=== PATIENT | male | born 1995 | race African-American/Black ===

== ENCOUNTER 2018-08-22 15:53 | Emergency (ER) | payer OTHER ==
[~2018-08-22] VITALS: Ht 177.8 cm; Wt 127.0 kg
[2018-08-22 16:10] VITALS: BP 144/83
[2018-08-22] MEDS ORDERED: KETOROLAC 30 MG/ML VIAL. IM ONE (16:15)
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
--- NOTE | 2018-08-23 09:49 | RAD ---
Three-view right knee study Clinical indications: Right knee pain. FINDINGS: No acute fracture or dislocation or lytic process is seen. Mild degenerative spurring of the medial tibiofemoral joint compartment and to a lesser extent the lateral tibiofemoral joint compartment is seen. There is mild joint space narrowing of both of these joint compartments. No significant right knee joint effusion is seen. IMPRESSION: No acute fracture. 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 Electronically signed by: Shiva Keller MD (08/22/2018 4:56 PM) [id number]
== END 2018-08-22 17:45 | disposition home or self-care (01) ==
LOC: ER 15:53
DX: M25.561 Pain in right knee (principal); R09.81 Nasal congestion
CPT/HCPCS: 73562; 96372; 99284; J1885

== ENCOUNTER → 2018-09-21 | Outpatient (CLI) | payer OTHER ==
[2018-08-22 16:10] VITALS: BP 144/83
--- NOTE | 2018-09-21 12:44 | KCIC ---
MR of the right knee HISTORY: Right knee pain. Positive Ellis's. Pain anterior. TECHNIQUE: Routine multiplanar sequences are obtained. FINDINGS: No evidence of medial meniscal tear. No evidence of lateral meniscal tear. Anterior and posterior cruciate ligaments are intact. Medial collateral ligament is intact. Iliotibial band unremarkable. Fibular collateral ligament, biceps femoris tendon and popliteus tendon are intact. Extensor mechanism is intact. Trace joint fluid. No evidence of acute articular cartilage defect. No bone destruction or acute fracture. IMPRESSION: No evidence of acute abnormality or internal derangement. Electronically signed by: Kofi Jimenez MD (09/21/2018 12:40 PM) [facility]
== END | disposition home or self-care (01) ==
LOC: KCIC MRI 11:34
PROVIDERS: ATTEND Orthopaedic Surgery
DX: M25.561 Pain in right knee (principal)
CPT/HCPCS: 73721

== ENCOUNTER 2018-10-01 09:53 | Emergency (ER) | payer OTHER ==
[~2018-10-01] VITALS: Ht 167.6 cm; Wt 108.9 kg
[2018-10-01 10:03] VITALS: BP 159/81
[2018-10-01] MEDS ORDERED: PANTOPRAZOLE 40 MG TABLET.DR. PO ONE (10:15)
[2018-10-01] MEDS ORDERED: LIDO:MAALOX 1:1 20 ML SINGLE DOSE. SWSW ONE (10:15)
[2018-10-01] MEDS ORDERED: PANT40GR PO (10:15)
--- NOTE | 2018-10-01 10:15 | PHYS DOC ---
Past Medical History Past Medical History: No Pertinent History Past Surgical History: No Surgical History Alcohol Use: Occasionally Drug Use: None Adult General Chief Complaint Chief Complaint: SORE THROAT HPI HPI Patient is a 22 year old male who presents with sore throat has been ongoing for months. Patient is not tried any interventions prior to arrival. Is able to talk in full sentences, and is able to keep food down and swallow normally. States that he gets acid like sensation in the back of his throat. Rates his pain as 5 out of 10 in severity. States is worse in the morning. Review of Systems Review of Systems Constitutional: Denies fever or chills [] Eyes: Denies change in visual acuity, redness, or eye pain [] HENT: Denies nasal congestion but reports sore throat [] Respiratory: Denies cough or shortness of breath [] Cardiovascular: No additional information not addressed in HPI [] GI: Denies abdominal pain, nausea, vomiting, bloody stools or diarrhea [] : Denies dysuria or hematuria [] Musculoskeletal: Denies back pain or joint pain [] Integument: Denies rash or skin lesions [] Neurologic: Denies headache, focal weakness or sensory changes [] Endocrine: Denies polyuria or polydipsia [] Complete systems were reviewed and found to be within normal limits, except as documented in this note. Current Medications Current Medications Current Medications Medications (Trade) Dose Ordered Sig/Erick Start Time Stop Time Status Last Admin Dose Admin Multi-Ingredient Mouthwash/Gargle (Gi Cocktail) 20 ml 1X ONCE 10/01/18 10:15 10/01/18 10:16 DC 10/01/18 10:20 20 ML Pantoprazole Sodium (Protonix) 40 mg 1X ONCE 10/01/18 10:15 10/01/18 10:16 DC 10/01/18 10:19 40 MG Allergies Allergies Allergies Coded Allergies Type Severity Reaction Last Updated Verified No Known Drug Allergies 08/22/18 No Physical Exam Physical Exam Constitutional: Well developed, well nourished, no acute distress, non-toxic appearance. [] HENT: Normocephalic, atraumatic, bilateral external ears normal, oropharynx magnus st, no oral exudates, throat is erythematous, nose normal. [] Eyes: PERRLA, EOMI, conjunctiva normal, no discharge. [] Neck: Normal range of motion, no tenderness, supple, no stridor. [] Cardiovascular:Heart rate regular rhythm, no murmur [] Lungs & Thorax: Bilateral breath sounds clear to auscultation [] Abdomen: Bowel sounds normal, soft, no tenderness, no masses, no pulsatile masses. [] Skin: Warm, dry, no erythema, no rash. [] Back: No tenderness, no CVA tenderness. [] Extremities: No tenderness, no cyanosis, no clubbing, ROM intact, no edema. [] Neurologic: Alert and oriented X 3, normal motor function, normal sensory function, no focal deficits noted. [] Psychologic: Affect normal, judgement normal, mood normal. [] Current Patient Data Vital Signs Vital Signs Date Time Temp Pulse Resp B/P (MAP) Pulse Ox O2 Delivery O2 Flow Rate FiO2 10/01/18 10:03 99.6 97 18 159/81 (107) 97 Room Air 99.6 EKG EKG [] Radiology/Procedures Radiology/Procedures [] Course & Med Decision Making Course & Med Decision Making Pertinent Labs and Imaging studies reviewed. (See chart for details) Appears to have GERD. Will give a GI Cocktail and Protonix. Will write a pr escription for Protonix and have him follow up with a primary care doctor. Will d/c home. GI cocktail improved symptoms. Dragon Disclaimer Louis Disclaimer This electronic medical record was generated, in whole or in part, using a voice recognition dictation system. Departure Departure Impression: Primary Impression: GERD (gastroesophageal reflux disease) Disposition: 01 HOME, SELF-CARE Condition: STABLE Referrals: NO PCP (PCP) Patient Instructions: Diet for Gastroesophageal Reflux Disease, Adult, Gastroesophageal Reflux Disease, Adult Additional Instructions: Thank you for visiting [facility]. We appreciate you trusting us with your care. If any additional problems come up don't hesitate to return to visit us. Please follow up with your primary care provider so they can plan ad ditional care if needed and know about the problem that you had. If symptoms worsen come back to the Emergency Department. Any concerning symptoms that start such as chest pain, shortness of Air, weakness or numbness on one side of the body, running high fevers or any other concerning symptoms return to the ER. Scripts Pantoprazole Sodium (PROTONIX) 20 Mg Tablet.dr 40 MG PO DAILY for 30 Days, #60 TAB Prov: PAULETTE PERRY APRN 10/01/18 Problem Qualifiers Primary Impression: GERD (gastroesophageal reflux disease) Esophagitis presence: esophagitis presence not specified Qualified Codes: K21.9 - Gastro-esophageal reflux disease without esophagitis PAULETTE PERRY APRN Oct 01, 2018 10:15
[2018-10-01] MEDS ORDERED: PANT20TA2 PO (10:18)
== END 2018-10-01 10:47 | disposition home or self-care (01) ==
LOC: ER 09:53
DX: K21.9 Gastro-esophageal reflux disease without esophagitis (principal)
CPT/HCPCS: 99283

== ENCOUNTER 2018-11-15 11:03 | Emergency (ER) | payer SELFPAY ==
[~2018-11-15] VITALS: Ht 177.8 cm; Wt 108.9 kg
[~2018-11-15 11:03] MED LIST: PANT20TA2 PO; PANT40GR PO
--- NOTE | 2018-11-15 11:23 | PHYS DOC ---
Past Medical History Past Medical History: No Pertinent History Past Surgical History: No Surgical History Alcohol Use: Occasionally Drug Use: None Adult General Chief Complaint Chief Complaint: ABDOMINAL PAIN HPI HPI Patient is a 23 year old male presents to the ED complaining of abdominal pain since last night. States the pain is to his upper right quadrant. Describes the pain as sharp. Rates the pain as 6 out of 10. Associated symptoms include nausea and vomiting. States he vomited over 5 times. Last meal was dairy higgins. Denies chest pain, shortness of breath, dizziness, weakness, diarrhea, blood in stool, headache, dysuria or fever. Review of Systems Review of Systems Constitutional: Denies fever or chills [] Eyes: Denies change in visual acuity, redness, or eye pain [] HENT: Denies nasal congestion or sore throat [] Respiratory: Denies cough or shortness of breath [] Cardiovascular: No additional information not addressed in HPI [] GI: Complains of abdominal pain and nausea/vomiting. Denies bloody stools or diarrhea [] : Denies dysuria or hematuria [] Musculoskeletal: Denies back pain or joint pain [] Integument: Denies rash or skin lesions [] Neurologic: Denies headache, focal weakness or sensory changes [] All other systems were reviewed and found to be within normal limits, except as documented in this note. Allergies Allergies Allergies Coded Allergies Type Severity Reaction Last Updated Verified No Known Drug Allergies 08/22/18 No Physical Exam Physical Exam Constitutional: Well developed, well nourished, no acute distress, non-toxic appearance. [] HENT: Normocephalic, atraumatic Eyes: PERRLA, EOMI, conjunctiva normal, no discharge. [] Neck: Normal range of motion, no tenderness, supple, no stridor. [] Cardiovascular:Heart rate regular rhythm, no murmur [] Lungs & Thorax: Bilateral breath sounds clear to auscultation [] Abdomen: Bowel sounds normal, soft, Mild RUQ tenderness, no masses, no pulsatile masses. [] Skin: Warm, dry, no erythema, no rash. [] Back: No tenderness, no CVA tenderness. [] Extremities: No tenderness, no cyanosis, no clubbing, ROM intact, no edema. [] Neurologic: Alert and oriented X 3, normal motor function, normal sensory function, no focal deficits noted. [] Psychologic: Affect normal, judgement normal, mood normal. [] Current Patient Data Vital Signs Vital Signs Date Time Temp Pulse Resp B/P (MAP) Pulse Ox O2 Delivery O2 Flow Rate FiO2 11/15/18 11:19 98.7 85 18 134/82 (99) 97 Room Air 98.7 Lab Values Laboratory Tests Test 11/15/18 11:10 11/15/18 11:45 11/15/18 12:15 Urine Collection Type Unknown Urine Color Yellow Urine Clarity Clear Urine pH 6.0 Urine Specific Sterling 1.020 Urine Protein Negative mg/dL (NEG-TRACE) Urine Glucose (UA) Negative mg/dL (NEG) Urine Ketones (Stick) Negative mg/dL (NEG) Urine Blood Negative (NEG) Urine Nitrite Negative (NEG) Urine Bilirubin Negative (NEG) Urine Urobilinogen Dipstick 0.2 mg/dL (0.2 mg/dL) Urine Leukocyte Esterase Trace (NEG) Urine RBC Occ /HPF (0-2) Urine WBC 1-4 /HPF (0-4) Urine Squamous Epithelial Cells Occ /LPF Urine Bacteria 0 /HPF (0-FEW) White Blood Count 6.9 x10^3/uL (4.0-11.0) Red Blood Count 5.50 x10^6/uL (4.30-5.70) Hemoglobin 15.3 g/dL (13.0-17.5) Hematocrit 45.0 % (39.0-53.0) Mean Corpuscular Volume 82 fL (79-100) Mean Corpuscular Hemoglobin 28 pg (25-35) Mean Corpuscular Hemoglobin Concent 34 g/dL (31-37) Red Cell Distribution Width 14.9 % (11.5-14.5) H Platelet Count 297 x10^3/uL (140-400) Neutrophils (%) (Auto) 64 % (31-73) Lymphocytes (%) (Auto) 27 % (24-48) Monocytes (%) (Auto) 8 % (0-9) Eosinophils (%) (Auto) 1 % (0-3) Basophils (%) (Auto) 0 % (0-3) Neutrophils # (Auto) 4.4 x10^3/uL (1.8-7.7) Lymphocytes # (Auto) 1.9 x10^3/uL (1.0-4.8) Monocytes # (Auto) 0.5 x10^3/uL (0.0-1.1) Eosinophils # (Auto) 0.1 x10^3/uL (0.0-0.7) Basophils # (Auto) 0.0 x10^3/uL (0.0-0.2) Sodium Level 141 mmol/L (136-145) Potassium Level 3.8 mmol/L (3.5-5.1) Chloride Level 107 mmol/L (98-107) Carbon Dioxide Level 26 mmol/L (21-32) Anion Gap 8 (6-14) Blood Urea Nitrogen 11 mg/dL (8-26) Creatinine 1.2 mg/dL (0.7-1.3) Estimated GFR (Cockcroft-Gault) 89.3 BUN/Creatinine Ratio 9 (6-20) Glucose Level 105 mg/dL (70-99) H Calcium Level 9.2 mg/dL (8.5-10.1) Total Bilirubin 0.4 mg/dL (0.2-1.0) Aspartate Amino Transferase (AST) 16 U/L (15-37) Alanine Aminotransferase (ALT) 33 U/L (16-63) Alkaline Phosphatase 72 U/L (46-116) Total Protein 7.2 g/dL (6.4-8.2) Albumin 3.7 g/dL (3.4-5.0) Albumin/Globulin Ratio 1.1 (1.0-1.7) Lipase 141 U/L (73-393) Laboratory Tests 11/15/18 11:45 Laboratory Tests 11/15/18 12:15 EKG EKG [] Radiology/Procedures Radiology/Procedures PROCEDURE: CT ABDOMEN PELVIS WO CONTRAST Examination: CT of the abdomen pelvis without contrast HISTORY: History of right upper quadrant abdominal pain COMPARISON: None available TECHNIQUE: Axial CT images of the abdomen pelvis were performed without contrast. Coronal and sagittal reformats are performed. Exposure: One or more of the following individualized dose reduction techniques were utilized for this examination: 1. Automated exposure control 2. Adjustment of the mA and/or kV according to patient size 3. Use of iterative reconstruction technique FINDINGS: Minimal bibasilar lung atelectasis. No evidence of free air identified in the abdomen The evaluation of the solid organs is limited due to lack of IV contrast. The evaluation of bowel is limited due to lack of oral contrast. The visualized noncontrasted liver, spleen, adrenals grossly appears unremarkable. The gallbladder is mildly distended. The stomach is mildly distended. The visualized pancreas grossly appears unremarkable. The small bowel is nondilated. The appendix is normal. Feces and gas noted in the colon. The urinary bladder is mildly distended. No evidence of intrarenal collecting system calculi or hydronephrosis. The urinary bladder is mildly distended. No evidence of lytic bony destructive lesion. IMPRESSION: No acute intra-abdominal findings. [] PROCEDURE: ABDOMEN COMPLETE ABDOMEN COMPLETE: 11/15/2018 11:17 AM Indication: 23 years old Male. Abdominal pain and right upper quadrant of the abdomen. Comparison: None. TECHNIQUE: Sonographic evaluation of the abdomen is performed utilizing grayscale and color Doppler. FINDINGS: Liver: Homogenous normal echotexture.. There is hepatopedal flow within the portal venous system. Right hepatic lobe measures 14.9 cm. Biliary system: CBD measures 3.2 mm. There is no intrahepatic or extrahepatic biliary dilatation. Gallbladder: No stones, wall thickening or pericholecystic fluid. . Sonographic Guadalupe sign: Negative Pancreas: Visualized head and uncinate process are unremarkable. Body and tail are not visualized. Spleen: 10.7 cm. Right kidney: 9.5 x 4.8 x 4.2 cm. No hydronephrosis. Normal echotexture without focal mass or renal calculus. Left kidney: 10.3 x 4.1 x 4.8 cm. No hydronephrosis. Normal echotexture without focal mass or renal calculus. Abdominal aorta and IVC: Visualized portions unremarkable. Free fluid:None. IMPRESSION: No cholelithiasis nor intrahepatic or extrahepatic biliary ductal dilatation. Course & Med Decision Making Course & Med Decision Making Pertinent Labs and Imaging studies reviewed. (See chart for details) []Discussed lab and imaging findings with patient. Patient's pain improved in the ED. States she is feeling much better. On reexamination, abdomen is soft nontender. No peritoneal signs. Tolerating by mouth. Discussed symptomatic treatment and dietary changes. Discussed follow-up with PCP this week. Provided contact information such education. Discussed reasons to return to the ED. Patient understands and agrees with plan. Dragon Disclaimer Dragon Disclaimer This electronic medical record was generated, in whole or in part, using a voice recognition dictation system. Departure Departure Impression: Primary Impression: Abdominal pain Additional Impression: Vomiting Disposition: 01 HOME, SELF-CARE Condition: IMPROVED Referrals: NO PCP (PCP) PAULETTE ESCALANTE MD Patient Instructions: Abdominal Pain Scripts Ondansetron Hcl (ZOFRAN) 4 Mg Tablet 1 TAB PO Q6HRS, #15 TAB Prov: ALFONSO VASQUEZ 11/15/18 Problem Qualifiers ALFONSO VASQUEZ Nov 15, 2018 11:23
[2018-11-15 11:29] LABS: BILIRUBIN,URINE NEGATIVE (NEG); CLARITY,URINE CLEAR; COLOR,URINE YELLOW; NITRITE,URINE NEGATIVE (NEG); PROTEIN,URINE NEGATIVE (NEG-TRACE); UROBILINOGEN,URINE 0.2 mg/dL (0.2 mg/dL)
[2018-11-15 11:42] LABS: BACTERIA,URINE 0 /HPF (0-FEW); RBC,URINE OCC /HPF (0-2)
[2018-11-15 11:43] LABS: SQUAMOUS EPITHELIAL CELL,UR OCC /LPF
[2018-11-15 11:52] LABS: BASO % 0 % (0-3); EOS # 0.1 x10^3/uL (0.0-0.7); EOS % 1 % (0-3); HEMOGLOBIN 15.3 g/dL (13.0-17.5); LYMPH # 1.9 x10^3/uL (1.0-4.8); LYMPH % 27 % (24-48); MEAN CORPUSCULAR HEMOGLOBIN 28 pg (25-35); MEAN CORPUSCULAR HGB CONC 34 g/dL (31-37); MEAN CORPUSCULAR VOLUME 82 fL (79-100); MONO # 0.5 x10^3/uL (0.0-1.1); MONO % 8 % (0-9); NEUT # 4.4 x10^3/uL (1.8-7.7); NEUT % 64 % (31-73); PLATELET COUNT 297 x10^3/uL (140-400); RED CELL DISTRIBUTION WIDTH 14.9 % (11.5-14.5); WHITE BLOOD COUNT 6.9 x10^3/uL (4.0-11.0)
[2018-11-15 12:45] LABS: CALCIUM 9.2 mg/dL (8.5-10.1); CREATININE 1.2 mg/dL (0.7-1.3); GFR 89.3; POTASSIUM 3.8 mmol/L (3.5-5.1)
[2018-11-15 12:49] VITALS: BP 126/64
[2018-11-15 12:51] LABS: ALBUMIN 3.7 g/dL (3.4-5.0); ALBUMIN/GLOBULIN RATIO 1.1 (1.0-1.7); TOTAL BILIRUBIN 0.4 mg/dL (0.2-1.0); TOTAL PROTEIN 7.2 g/dL (6.4-8.2)
--- NOTE | 2018-11-15 12:51 | RAD ---
ABDOMEN COMPLETE: 11/15/2018 11:17 AM Indication: 23 years old Male. Abdominal pain and right upper quadrant of the abdomen. Comparison: None. TECHNIQUE: Sonographic evaluation of the abdomen is performed utilizing grayscale and color Doppler. FINDINGS: Liver: Homogenous normal echotexture.. There is hepatopedal flow within the portal venous system. Right hepatic lobe measures 14.9 cm. Biliary system: CBD measures 3.2 mm. There is no intrahepatic or extrahepatic biliary dilatation. Gallbladder: No stones, wall thickening or pericholecystic fluid. . Sonographic Guadalupe sign: Negative Pancreas: Visualized head and uncinate process are unremarkable. Body and tail are not visualized. Spleen: 10.7 cm. Right kidney: 9.5 x 4.8 x 4.2 cm. No hydronephrosis. Normal echotexture without focal mass or renal calculus. Left kidney: 10.3 x 4.1 x 4.8 cm. No hydronephrosis. Normal echotexture without focal mass or renal calculus. Abdominal aorta and IVC: Visualized portions unremarkable. Free fluid:None. IMPRESSION: No cholelithiasis nor intrahepatic or extrahepatic biliary ductal dilatation. Electronically signed by: Celena Lott MD (11/15/2018 12:48 PM) [id number]
--- NOTE | 2018-11-15 13:09 | RAD ---
Examination: CT of the abdomen pelvis without contrast HISTORY: History of right upper quadrant abdominal pain COMPARISON: None available TECHNIQUE: Axial CT images of the abdomen pelvis were performed without contrast. Coronal and sagittal reformats are performed. Exposure: One or more of the following individualized dose reduction techniques were utilized for this examination: 1. Automated exposure control 2. Adjustment of the mA and/or kV according to patient size 3. Use of iterative reconstruction technique FINDINGS: Minimal bibasilar lung atelectasis. No evidence of free air identified in the abdomen The evaluation of the solid organs is limited due to lack of IV contrast. The evaluation of bowel is limited due to lack of oral contrast. The visualized noncontrasted liver, spleen, adrenals grossly appears unremarkable. The gallbladder is mildly distended. The stomach is mildly distended. The visualized pancreas grossly appears unremarkable. The small bowel is nondilated. The appendix is normal. Feces and gas noted in the colon. The urinary bladder is mildly distended. No evidence of intrarenal collecting system calculi or hydronephrosis. The urinary bladder is mildly distended. No evidence of lytic bony destructive lesion. IMPRESSION: No acute intra-abdominal findings. Electronically signed by: Weston Hobbs MD (11/15/2018 1:06 PM) [id number]
[2018-11-15] MEDS ORDERED: ONDA4TAB7 PO (13:22)
== END 2018-11-15 13:32 | disposition home or self-care (01) ==
LOC: ER 11:03
DX: R10.11 Right upper quadrant pain (principal); R11.2 Nausea with vomiting, unspecified
CPT/HCPCS: 36415; 74176; 76700; 80053; 81001; 83690; 85025; 99285

== ENCOUNTER 2018-11-20 13:38 | Emergency (ER) | payer SELFPAY ==
[~2018-11-20] VITALS: Ht 167.6 cm; Wt 111.1 kg
[~2018-11-20 13:38] MED LIST changes: +ONDA4TAB7 PO
[2018-11-20] MEDS ORDERED: NAPROXEN 500 MG TABLET PO STA (14:05)
--- NOTE | 2018-11-20 14:19 | PHYS DOC ---
Past Medical History Past Medical History: No Pertinent History Past Surgical History: No Surgical History Alcohol Use: Occasionally Drug Use: None Adult General Chief Complaint Chief Complaint: FLANK PAIN HPI HPI Patient is a 23 year old male who presents with complaining of back pain. Patient states he was at work today and felt right upper back pain as a constant sharp pain with radiation to right side of abdomen without radiation to his right lower extremity or genital area and focal neuro deficit. She said the pain getting worse and denies shortness of breath, chest pain, nausea and vomiting, urinary symptom, history of the same pain. Patient rated his pain 10 over 10 and denies taking pain medication. Review of Systems Review of Systems Constitutional: Denies fever or chills [] Eyes: Denies change in visual acuity, redness, or eye pain [] HENT: Denies nasal congestion or sore throat [] Respiratory: Denies cough or shortness of breath [] Cardiovascular: No additional information not addressed in HPI [] GI: Denies abdominal pain, nausea, vomiting, bloody stools or diarrhea [] : Denies dysuria or hematuria [] Musculoskeletal: Denies back pain or joint pain [] Integument: Denies rash or skin lesions [] Neurologic: Denies headache, focal weakness or sensory changes [] Endocrine: Denies polyuria or polydipsia [] All other systems were reviewed and found to be within normal limits, except as documented in this note. Current Medications Current Medications Current Medications Medications (Trade) Dose Ordered Sig/Erick Start Time Stop Time Status Last Admin Dose Admin Naproxen (Naprosyn) 500 mg 1X STAT 11/20/18 14:05 11/20/18 14:10 DC 11/20/18 14:17 500 MG Allergies Allergies Allergies Coded Allergies Type Severity Reaction Last Updated Verified No Known Drug Allergies 08/22/18 No Physical Exam Physical Exam Constitutional: Well developed, well nourished, mild distress, non-toxic appearance. [] HENT: Normocephalic, atraumatic. Eyes: PERRLA, EOMI, conjunctiva normal, no discharge. [] Neck: Normal range of motion, no tenderness, supple, no stridor. [] Cardiovascular:Heart rate regular rhythm, no murmur [] Lungs & Thorax: Bilateral breath sounds clear to auscultation [] Abdomen: Bowel sounds normal, soft, no tenderness, no masses, no pulsatile masses. [] Skin: Warm, dry, no erythema, no rash. [] Back: No tenderness, no CVA tenderness. [] Extremities: No tenderness, no cyanosis, no clubbing, ROM intact, no edema. [] Neurologic: Alert and oriented X 3, no focal deficits noted. [] Psychologic: Affect normal, judgement normal, mood normal. [] Current Patient Data Vital Signs Vital Signs Date Time Temp Pulse Resp B/P (MAP) Pulse Ox O2 Delivery O2 Flow Rate FiO2 11/20/18 15:42 68 16 133/60 (84) 98 Room Air 11/20/18 13:57 98.1 98.1 Lab Values Laboratory Tests Test 11/20/18 13:57 Urine Collection Type Unknown Urine Color Yellow Urine Clarity Clear Urine pH 6.5 Urine Specific [place] 1.015 Urine Protein Negative mg/dL (NEG-TRACE) Urine Glucose (UA) Negative mg/dL (NEG) Urine Ketones (Stick) Negative mg/dL (NEG) Urine Blood Negative (NEG) Urine Nitrite Negative (NEG) Urine Bilirubin Negative (NEG) Urine Urobilinogen Dipstick 1.0 mg/dL (0.2 mg/dL) Urine Leukocyte Esterase Negative (NEG) Urine RBC 1-2 /HPF (0-2) Urine WBC Occ /HPF (0-4) Urine Bacteria 0 /HPF (0-FEW) Urine Mucus Mod /LPF EKG EKG [] Radiology/Procedures Radiology/Procedures [][facility] [address] [place] [address] IMAGING REPORT Signed PATIENT: VITOR TAN ACCOUNT: [id number] : 1995 LOCATION: ER AGE: 23 SEX: M EXAM STATUS: REG ER ORD. PHYSICIAN: MATA GIRON MD REASON: right upper flank pain started today. PROCEDURE: CT ABDOMEN PELVIS WO CONTRAST EXAM: CT Abdomen and Pelvis without IV contrast CLINICAL HISTORY: Right upper flank pain. COMPARISON: 11/15/2018 TECHNIQUE: Helical CT of the abdomen and pelvis without intravenous contrast. Axial, coronal and sagittal reformatted images were generated. PQRS compliance statement - One or more of the following individualized dose reduction techniques were utilized for this study: 1. Automated exposure control 2. Adjustment of the mA and/or kV according to patient size 3. Use of iterative reconstruction technique FINDINGS: Lack of intravenous contrast limits evaluation of solid organs, vasculature, and lymph nodes. Lower chest: Vague dependent groundglass opacities in the left greater than right lower lobes likely atelectasis. Abdomen and Pelvis: No focal liver lesion. No biliary ductal dilatation. High density material dependently in the gallbladder likely sludge. Spleen is unremarkable. Adrenal glands and pancreas are unremarkable. No renal tract calculus. No focal renal lesion. No hydronephrosis. Appendix is normal. No small or large bowel dilatation. Moderate colonic stool content. No abdominal or pelvic ascites. No abdominal or pelvic lymphadenopathy. Bones: Osseous structures are grossly normal. IMPRESSION: 1. High density material within the gallbladder likely sludge. No CT evidence for acute cholecystitis. 2. Moderate colonic stool content. No evidence for bowel obstruction. 3. Appendix is normal. Electronically signed by: Sylvester Huggins MD (11/20/2018 2:53 PM) [facility] DICTATED and SIGNED BY: SYLVESTER HUGGINS MD DATE: 11/20/18 1453 Course & Med Decision Making Course & Med Decision Making Pertinent Labs and Imaging studies reviewed. (See chart for details) I've spoken with the patient and/or caregivers. I've explained the patient's condition, diagnosis and treatment plan based on information available to me at this time. I've answered the patient's and/or caregivers questions and addressed any concerns. The patient and/or caregivers have a good understanding the patient's diagnosis, condition and treatment plan as can be expected at this point. Vital signs have been stabilized. The patient's condition is stable for discharge from the emergency department. The patient will pursue further outpatient evaluation with her primary care provider or other designated consulting physician as outlined in the discharge instructions. Patient and/or caregivers are agreeable to this plan of care and follow-up instructions have been explained in detail. The patient and/or caregivers have received these instructions in written format and expressed understanding of these discharge instructions. The patient and her caregivers are aware that if any significant change in condition or worsening of symptoms should prompt him to immediately return to this of the closest emergency department. If an emergent department is not readily available I would encourage him to call 911. Louis Disclaimer Louis Disclaimer This electronic medical record was generated, in whole or in part, using a voice recognition dictation system. Departure Departure Impression: Primary Impression: Biliary colic Disposition: 01 HOME, SELF-CARE (at 1537) Condition: IMPROVED Referrals: NO PCP (PCP) REMA COONEY MD Patient Instructions: Biliary Colic Additional Instructions: Drink plenty of liquids Follow-up with your primary care physician in 3-5 days Return to ER if not getting better Do not eat greasy food Follow-up with on-call surgeon in 2 or 3 days Scripts Ranitidine Hcl (ZANTAC) 150 Mg Tablet 1 TAB PO BID, #14 TAB Prov: MATA GIRON MD 11/20/18 Tramadol Hcl (ULTRAM) 50 Mg Tablet 50 MG PO Q6HRS PRN for PAIN, #14 TAB 0 Refills Prov: MATA GIRON MD 11/20/18 Cyclobenzaprine Hcl (CYCLOBENZAPRINE HCL) 10 Mg Tablet 1 TAB PO TID, #21 TAB Prov: MATA GIRON MD 11/20/18 MATA GIRON MD Nov 20, 2018 14:19
[2018-11-20 14:21] LABS: BILIRUBIN,URINE NEGATIVE (NEG); CLARITY,URINE CLEAR; COLOR,URINE YELLOW; NITRITE,URINE NEGATIVE (NEG); PH,URINE 6.5; PROTEIN,URINE NEGATIVE (NEG-TRACE)
[2018-11-20 14:39] LABS: BACTERIA,URINE 0 /HPF (0-FEW); WBC,URINE OCC /HPF (0-4)
--- NOTE | 2018-11-20 14:56 | RAD ---
EXAM: CT Abdomen and Pelvis without IV contrast CLINICAL HISTORY: Right upper flank pain. COMPARISON: 11/15/2018 TECHNIQUE: Helical CT of the abdomen and pelvis without intravenous contrast. Axial, coronal and sagittal reformatted images were generated. PQRS compliance statement - One or more of the following individualized dose reduction techniques were utilized for this study: 1. Automated exposure control 2. Adjustment of the mA and/or kV according to patient size 3. Use of iterative reconstruction technique FINDINGS: Lack of intravenous contrast limits evaluation of solid organs, vasculature, and lymph nodes. Lower chest: Vague dependent groundglass opacities in the left greater than right lower lobes likely atelectasis. Abdomen and Pelvis: No focal liver lesion. No biliary ductal dilatation. High density material dependently in the gallbladder likely sludge. Spleen is unremarkable. Adrenal glands and pancreas are unremarkable. No renal tract calculus. No focal renal lesion. No hydronephrosis. Appendix is normal. No small or large bowel dilatation. Moderate colonic stool content. No abdominal or pelvic ascites. No abdominal or pelvic lymphadenopathy. Bones: Osseous structures are grossly normal. IMPRESSION: 1. High density material within the gallbladder likely sludge. No CT evidence for acute cholecystitis. 2. Moderate colonic stool content. No evidence for bowel obstruction. 3. Appendix is normal. Electronically signed by: Sylvester Yates MD (11/20/2018 2:53 PM) [facility]
[2018-11-20] MEDS ORDERED: TRAM-48 PO (15:39)
[2018-11-20] MEDS ORDERED: RANI-376 PO (15:39)
[2018-11-20] MEDS ORDERED: CYCL10TA2 PO (15:39)
[2018-11-20 15:42] VITALS: BP 133/60
== END 2018-11-20 15:48 | disposition home or self-care (01) ==
LOC: ER 13:38
DX: K80.50 Calculus of bile duct without cholangitis or cholecystitis without obstruction (principal); M54.6 Pain in thoracic spine
CPT/HCPCS: 74176; 81001; 99285-25

== ENCOUNTER 2019-09-14 17:42 | Emergency (ER) | payer BC ==
[~2019-09-14] VITALS: Ht 170.2 cm; Wt 113.6 kg
[~2019-09-14 17:42] MED LIST changes: +CYCL10TA2 PO; +RANI-376 PO; +TRAM-48 PO
[2019-09-14] MEDS ORDERED: IBUPROFEN 200 MG TABLET. PO ONE (19:30)
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
[2019-09-14 20:34] VITALS: BP 123/91
== END 2019-09-14 20:35 | disposition home or self-care (01) ==
LOC: ER 17:42
DX: S60.221A Contusion of right hand, initial encounter (principal); M25.531 Pain in right wrist; R60.0 Localized edema; X58.XXXA Exposure to other specified factors, initial encounter; Y93.89 Activity, other specified; Y92.89 Other specified places as the place of occurrence of the external cause; Y99.8 Other external cause status
CPT/HCPCS: 73110; 73130; 99284

== ENCOUNTER 2019-10-25 00:48 | Emergency (ER) | payer OTHER, BC ==
[~2019-10-25] VITALS: Ht 167.6 cm; Wt 90.9 kg
--- NOTE | 2019-10-25 01:02 | PHYS DOC ---
Past Medical History Past Medical History: No Pertinent History Past Surgical History: No Surgical History Smoking Status: Never Smoker Alcohol Use: Occasionally Drug Use: None General Adult EDM: Chief Complaint: RIB PAIN HPI: HPI: Patient is a 23 year old male who arrives via EMS complaining of left pectoral pain. Pain is moderate in nature and worse with range of motion of left shoulder and radiates to the left back. 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 Pain began in the evening on October 23 about 6 PM. Patient denies any shortness of breath, cough, fever, chills, weakness in that left arm. Review of Systems: Review of Systems: Constitutional: Denies fever or chills Eyes: Denies change in visual acuity HENT: Denies sore throat Respiratory: Denies cough or shortness of breath Cardiovascular: Complains of left chest wall pain GI: Denies abdominal pain, nausea, vomiting, or diarrhea : Denies dysuria Musculoskeletal: Complains of pain in the left thoracic area Integument: Denies rash Neurologic: Denies headache or focal weakness Psychiatric: Denies depression or anxiety Heart Score: Risk Factors: Risk Factors: DM, Current or recent (<one month) smoker, HTN, HLP, family history of CAD, obesity. Risk Scores: Score 0 - 3: 2.5% MACE over next 6 weeks - Discharge Home Score 4 - 6: 20.3% MACE over next 6 weeks - Admit for Clinical Observation Score 7 - 10: 72.7% MACE over next 6 weeks - Early Invasive Strategies Allergies: Allergies: Allergies Coded Allergies Type Severity Reaction Last Updated Verified No Known Drug Allergies 08/22/18 No Physical Exam: PE: Constitutional: Well developed, well nourished, no acute distress, non-toxic appearance. HENT: No trismus Eyes: Conjunctiva clear, EOMI Neck: Normal range of motion, no tenderness, supple, no stridor. [] Cardiovascular: Regular rate/rhythm, peripheral pulse intact, B OPERATOR intact Lungs & Thorax: No respiratory distress, tenderness to palpate on the left pectoral but is mild and moderate pain to left pectoral with range of motion. Abdomen: No distension Skin: Diffuse: Intact, no rash Back: Full ROM Extremities: Normal inspection, no edema Neurologic: Alert and oriented X 3, normal motor function, , no focal deficits noted. Psychologic: Affect normal, judgement normal, mood normal. EKG: EKG: [] EKG interpreted by me normal sinus rhythm with rate of 71 [address] normal intervals ST elevations consistent with early repolarization. No ischemic ch anges. Radiology/Procedures: Radiology/Procedures: [][facility] [address] [place] [address] IMAGING REPORT Signed PATIENT: VITOR TAN ACCOUNT: [id number] : 1995 LOCATION: ER AGE: 23 SEX: M EXAM STATUS: REG ER ORD. PHYSICIAN: SANTOS FIELDS MD REASON: left sided chest pain PROCEDURE: CHEST PA & LATERAL EXAM: CHEST PA LATERAL INDICATION: Reason: left sided chest pain / Spl. Instructions: / History: . TECHNIQUE: PA and lateral views COMPARISON: None FINDINGS: The heart size is normal. The great vessels appear unremarkable. There is no hilar or mediastinal mass. The lungs are clear. There is no pleural effusion or pneumothorax. There are no significant osseous abnormalities. IMPRESSION: No active cardiopulmonary disease. Electronically signed by: Jessi Sim MD (10/25/2019 2:30 AM) [facility] [place] DICTATED and SIGNED BY: JESSI SIM MD DATE: 10/25/19229 Course & Med Decision Making: Course & Med Decision Making Pertinent Labs and Imaging studies reviewed. (See chart for details) [] Patient with left pectoral pain following work activity day prior. Patient is clinically stable. Symmetric bilateral blood pressures in the 150s. Doubt thoracic aortic dissection. Chest x-ray is clear. EKG is unremarkable. Doubt pulmonary embolism or acute coronary syndrome. Dragon Disclaimer: Dragon Disclaimer: This electronic medical record was generated, in whole or in part, using a voice recognition dictation system. Departure Departure Impression: Primary Impression: Pectoralis muscle strain Additional Impression: Chest wall pain Disposition: 01 HOME, SELF-CARE Condition: STABLE Referrals: NO PCP (PCP) pcp Patient Instructions: Chest Wall Pain Additional Instructions: EMERGENCY DEPARTMENT GENERAL DISCHARGE INSTRUCTIONS THANK YOU for coming to [facility] Emergency Department (ED) today and trusting us with your care. We trust that you had a positive experience in our Emergency Department. If you wish to speak to the department Management you can contact the upholstery department supervisor at . YOUR FOLLOW UP INSTRUCTIONS ARE FOLLOWS: Do you have a private doctor? If you do not have a private doctor, please ask for a resource list of physicians or clinics that may be able to assist you with follow up care. The Emergency Physician has interpreted your x-rays. The X-ray specialist will also review them. If there is a change in the findings you will be notified in 48 hours when at all possible. A lab test or lab culture may have been done, your results will be reviewed and you will be notified if you need a change in treatment. ADDITIONAL INSTRUCTIONS AND INFORMATION Your care today has been supervised by a physician who is specially trained in emergency care. Many problems require more than one evaluation for a complete diagnosis and treatment. We recommend that you schedule your follow up appointment as recommended to en sure complete treatment of your illness or injury. If you are unable to obtain follow up care and continue to have a problem, or if your condition worsens we recommend that you return to the ED. We are not able to safely determine your condition over the phone nor are we able to give sound medical advice over the phone. For these safety reasons, if you call for medical advice we will ask you to come to the ED for further evaluation If you have any questions regarding these discharge instructions please call the ED at . SAFETY INFORMATION In the interest of safety, wellness, and injury prevention; we encourage you to wear your seatbelt, if you smoke; quit smoking, and we encourage your family to use protective helmet for bicycling and other sporting events that present an increased risk for head injury. IF YOUR SYMPTOMS WORSEN OR NEW SYMPTOMS DEVELOP, OR YOU HAVE CONCERNS ABOUT YOUR CONDITION; OR IF YOUR CONDITION WORSENS WHILE YOU ARE WAITING FOR YOUR FOLLOW UP APPOINTMENT; EITHER CONTACT YOUR PRIMARY CARE DOCTOR, THE PHYSICIAN WHOSE NAME AND NUMBER YOU WERE GIVEN, OR RETURN TO THE ED IMMEDIATELY. Scripts Methocarbamol (ROBAXIN-750) 750 Mg Tablet 750 MG PO QID PRN for PAIN for 5 Days, #20 TAB Prov: SANTOS FIELDS MD 10/25/19 Ibuprofen (IBUPROFEN) 800 Mg Tablet 800 MG PO PRN Q8HRS PRN for PAIN for 10 Days, #30 TAB Prov: SANTOS FIELDS MD 10/25/19 Justicifation of Admission Dx: Justifications for Admission: Justification of Admission Dx: N/A SANTOS FIELDS MD Oct 25, 2019 01:02
[2019-10-25] MEDS ORDERED: KETOROLAC 60 MG/2 ML VIAL. IM ONE (02:30)
--- NOTE | 2019-10-25 02:33 | RAD ---
EXAM: CHEST PA LATERAL INDICATION: Reason: left sided chest pain / Spl. Instructions: / History: . TECHNIQUE: PA and lateral views COMPARISON: None FINDINGS: The heart size is normal. The great vessels appear unremarkable. There is no hilar or mediastinal mass. The lungs are clear. There is no pleural effusion or pneumothorax. There are no significant osseous abnormalities. IMPRESSION: No active cardiopulmonary disease. Electronically signed by: Juan Carlos Sim MD (10/25/2019 2:30 AM) [facility] [place]
--- NOTE | 2019-10-25 02:36 | EKG ---
[facility] [address] [place] [address] Test Date: 2019-10-25 Test Time: 01:08:19 Pat Name: VITOR TAN Department: Room: Gender: M Commission Sales Associate: : 1995 Requested By: SANTOS FIELDS Order Number: [id number] Reading MD: Measurements Intervals Crane Rate: 71 P: 34 ND: 134 QRS: 20 QRSD: 80 T: 19 QT: 344 QTc: 374 Interpretive Statements SINUS RHYTHM OTHERWISE NORMAL ECG RI6.02 No previous ECG available for comparison
[2019-10-25] MEDS ORDERED: IBUP-1060 PO (02:45)
[2019-10-25] MEDS ORDERED: METH-38 PO (02:45)
[2019-10-25 03:35] VITALS: BP 163/99
== END 2019-10-25 03:35 | disposition home or self-care (01) ==
LOC: ER 00:48
DX: S29.011A Strain of muscle and tendon of front wall of thorax, initial encounter (principal); R07.89 Other chest pain; M54.5 Low back pain; X50.9XXA Other and unspecified overexertion or strenuous movements or postures, initial encounter; Y93.89 Activity, other specified; Y92.89 Other specified places as the place of occurrence of the external cause; Y99.0 Civilian activity done for income or pay
CPT/HCPCS: 71046; 93005; 96372; 99285; J1885